=== PATIENT | male | born 1955 | race African-American/Black ===

== ENCOUNTER 2021-04-17 16:04 | Inpatient (IN) | payer OTHER ==
[2021-04-17] MEDS ORDERED: HEPARIN NA (PORCINE) 5,000 UNITS/ML 1ML VIAL IVPUSH ONE ×2 (18:24→19:01)
[2021-04-17] MEDS ORDERED: HEPARIN NA (PORCINE) 5,000 UNITS/ML 1ML VIAL IVPUSH PRN ×2 (18:24)
[2021-04-17] MEDS ORDERED: HEPARIN INFUSION - 25,000 UNITS/500 ML INFUS.BAG IVPB ONE (19:02)
[2021-04-17] MEDS ORDERED: HEPARIN NA (PORCINE) 5,000 UNITS/ML 1ML VIAL ONE (19:02)
[2021-04-17] MEDS: HEPARIN - 25,000 UNIT in SODIUM CHLORIDE 495 ML IV SCH (19:12)
[2021-04-17 19:41] LABS: INR 1.01 (0.83-1.09); PROTHROMBIN TIME (PATIENT) 12.2 SEC (9.7-13.0)
[2021-04-17 19:44] LABS: ACTIVATED PTT 36.8 SECONDS (25.2-36.5)
[2021-04-17 19:51] LABS: CALCIUM 9.5 mg/dL (8.5-10.1)
[2021-04-17 19:52] LABS: ALBUMIN 4.3 g/dl (3.4-5.0); BLOOD UREA NITROGEN 12.4 mg/dL (7-18)
[2021-04-17 19:55] LABS: BASO % 1.4 % (0-2.0); EOS % 2.9 % (0-4.5); HEMATOCRIT 43.1 % (35.4-49); HEMOGLOBIN 14.7 GM/dL (11.7-16.9); LYMPH % 37.2 % (8-40); MCH 33.6 pg (25.7-33.7); MEAN CELL VOLUME 98.7 fl (80-96); MEAN PLT VOLUME 8.6 fl (7.5-11.1); MONO % 10.4 % (3.8-10.2); NEUT % 48.1 % (42.8-82.8); PLATELET COUNT 203 10^3/uL (134-434); RBC 4.37 M/mm3 (4.00-5.60); WHITE BLOOD COUNT 6.9 K/mm3 (4.0-10.0)
[2021-04-17 19:56] LABS: BILIRUBIN,TOTAL 0.8 mg/dL (0.2-1)
[2021-04-17] MEDS ORDERED: ACETAMINOPHEN 325 MG TABLET (FP) PO ONE (20:21)
[2021-04-17] MEDS ORDERED: SODIUM CHLORIDE 1,000 ML IV SCH (22:00)
[2021-04-17] MEDS ORDERED: ACETAMINOPHEN 325 MG TABLET (FP) ONE (22:03)
[2021-04-18 01:08] VITALS: BMI 20.3
[2021-04-18 03:05] LABS: PROTHROMBIN TIME (PATIENT) 12.3 SEC (9.7-13.0)
[2021-04-18 03:06] LABS: INR 1.02 (0.83-1.09)
[2021-04-18 09:14] LABS: HEMATOCRIT 40.8 % (35.4-49); MCHC 34.3 g/dl (32.0-35.9); MEAN CELL VOLUME 99.2 fl (80-96); MEAN PLT VOLUME 9.4 fl (7.5-11.1); PLATELET COUNT 193 10^3/uL (134-434); RBC 4.11 M/mm3 (4.00-5.60); WHITE BLOOD COUNT 6.6 K/mm3 (4.0-10.0)
[2021-04-18 09:53] LABS: ALBUMIN 3.5 g/dl (3.4-5.0); CALCIUM 8.8 mg/dL (8.5-10.1); MAGNESIUM 2.4 mg/dL (1.8-2.4)
[2021-04-18 09:55] LABS: BILIRUBIN,TOTAL 0.8 mg/dL (0.2-1); TOT PROT 6.6 g/dl (6.4-8.2)
[2021-04-18 09:56] LABS: PHOSPHOROUS 3.4 mg/dL (2.5-4.9)
[2021-04-19] MEDS: HEPARIN - 25,000 UNIT in SODIUM CHLORIDE 495 ML IV SCH (00:55)
[2021-04-19] MEDS ORDERED: PROPOFOL 20 ML ONE ×2 (08:26→09:48)
[2021-04-19] MEDS ORDERED: MIDAZOLAM HCL 2 MG/2 ML SINGLE DOSE VIAL ONE ×2 (08:26→09:08)
[2021-04-19 08:55] LABS: BASO % 0.9 % (0-2.0); EOS % 2.8 % (0-4.5); HEMATOCRIT 40.3 % (35.4-49); HEMOGLOBIN 13.8 GM/dL (11.7-16.9); LYMPH % 46.4 % (8-40); MCH 33.8 pg (25.7-33.7); MCHC 34.2 g/dl (32.0-35.9); MEAN PLT VOLUME 9.6 fl (7.5-11.1); MONO % 12.2 % (3.8-10.2); NEUT % 37.7 % (42.8-82.8); PLATELET COUNT 166 10^3/uL (134-434); RBC 4.07 M/mm3 (4.00-5.60); WHITE BLOOD COUNT 5.6 K/mm3 (4.0-10.0)
[2021-04-19] MEDS ORDERED: LIDOCAINE HCL 1%, 10 MG/ML (20ML VIAL) NR ONE ×3 (09:01→09:19)
[2021-04-19] MEDS ORDERED: ceFAZolin SODIUM 1 GM VIAL ONE (09:06)
[2021-04-19] MEDS ORDERED: ceFAZolin SODIUM 1 GM VIAL IVPB ONE (09:09)
[2021-04-19 09:21] LABS: BLOOD UREA NITROGEN 13.4 mg/dL (7-18)
[2021-04-19] MEDS ORDERED: HEPARIN NA (PORCINE) 5,000 UNITS/ML 1ML VIAL SQ ONE (09:22)
[2021-04-19 09:24] LABS: ALBUMIN 3.3 g/dl (3.4-5.0)
[2021-04-19 09:25] LABS: BILIRUBIN,TOTAL 0.6 mg/dL (0.2-1); TOT PROT 6.3 g/dl (6.4-8.2)
[2021-04-19 09:27] LABS: CALCIUM 8.6 mg/dL (8.5-10.1); CREATININE 0.9 mg/dL (0.55-1.3); MAGNESIUM 2.2 mg/dL (1.8-2.4); PHOSPHOROUS 3.2 mg/dL (2.5-4.9)
[2021-04-19] MEDS ORDERED: HEPARIN NA (PORCINE) 5,000 UNITS/ML 1ML VIAL ONE (09:29)
[2021-04-19] MEDS ORDERED: oxyCODONE HCL 5 MG TABLET PO PRN (10:43)
[2021-04-19] MEDS ORDERED: ONDANSETRON 4 MG/2 ML VIAL IVPUSH PRN (10:43)
[2021-04-19] MEDS ORDERED: CLOPIDOGREL BISULFATE 75 MG TABLET (FP) PO ONE (11:05)
[2021-04-19] MEDS: CLOPIDOGREL BISULFATE 75 MG TABLET (FP) PO SCH (13:07)
[2021-04-19] MEDS: amLODIPine BESYLATE 5 MG TABLET (FP) PO SCH (17:02)
[2021-04-19] MEDS ORDERED: amLODIPine BESYLATE 5 MG TABLET (FP) PO ONE (18:03)
[2021-04-19] MEDS ORDERED: LABETALOL HCL 100 MG TABLET (FP) PO ONE (18:53)
[2021-04-19] MEDS: LABETALOL HCL 100 MG TABLET (FP) PO SCH (22:50)
[2021-04-20 09:29] VITALS: BP 114/60; PULSE 71; TEMP 100.2
[2021-04-20] MEDS: amLODIPine BESYLATE 5 MG TABLET (FP) PO SCH (09:30)
[2021-04-20] MEDS: CLOPIDOGREL BISULFATE 75 MG TABLET (FP) PO SCH (09:30)
[2021-04-20] MEDS: LABETALOL HCL 100 MG TABLET (FP) PO SCH (09:32)
[2021-04-20] MEDS ORDERED: ACETAMINOPHEN 325 MG TABLET (FP) PO ONE ×2 (10:58→10:59)
== END 2021-04-20 14:29 | disposition home or self-care (01) | DRG 272 ==
LOC: JER 16:04 → JERBED 19:27 → J6S 04-18 00:22
PROVIDERS: ADMIT Internal Medicine; ATTEND Internal Medicine
PROC: X27J385 Dilation of Left Femoral Artery with Sustained Release Drug-eluting Intraluminal Device, Percutaneous Approach, New Technology Group 5 (ICD-10-PCS; 2021-04-19)
PROC: 3E05317 Introduction of Other Thrombolytic into Peripheral Artery, Percutaneous Approach (ICD-10-PCS; 2021-04-19)
PROC: B41DZZZ Fluoroscopy of Aorta and Bilateral Lower Extremity Arteries (ICD-10-PCS; 2021-04-19)
PROC: 04CL3ZZ Extirpation of Matter from Left Femoral Artery, Percutaneous Approach (ICD-10-PCS; principal; 2021-04-19 09:00)
DX: I77.89 Other specified disorders of arteries and arterioles (principal); I73.9 Peripheral vascular disease, unspecified; E78.5 Hyperlipidemia, unspecified; F17.210 Nicotine dependence, cigarettes, uncomplicated; I16.0 Hypertensive urgency
CPT/HCPCS: 36415; 75635-TC; 76000-TC-FY; 80053; 80061; 82607; 82746; 83721; 83735; 84100; 85025; 85027; 85610; 85730; 86850; 86900; 86901; 93005; 93010; 94010; 94760; 99285-25; C9803; J1644; Q9967; U0003; U0005

== ENCOUNTER 2023-03-05 04:17 | Day surgery (SDC) | payer BC, OTHER ==
[2023-03-04 13:40] VITALS: BMI 20.9
[~2023-03-05 04:17] MED LIST: ACETAMINOPHEN 325 MG TABLET (FP) PO PRN; CYCLOPENTOLATE HCL 1% OPHTH SOLN 2 ML BOTTLE OP SCH; KETOROLAC TROMETHAMINE 0.5% EYE DROP 1 DROP DROPS OP SCH; OFLOXACIN 0.3% OPHTHALMIC SOLUTION 5 ML BOTTLE OP SCH; PHENYLEPHRINE 2.5% OPHTH SOLN 15 ML BOTTLE OP SCH; TROPICAMIDE 1% OPHTH SOLN 15 ML BOTTLE OP SCH
[2023-03-05] MEDS ORDERED: POVIDONE-IODINE 5% OPHTHALMIC PREP 30 ML SOLUTION ONE (07:14)
[2023-03-05] MEDS ORDERED: LIDOCAINE HCL/PF 1% SDV 5ML VIAL ONE (07:14)
[2023-03-05] MEDS ORDERED: TETRACAINE 0.5% OPHTH SOLN 2 ML BOTTLE ONE (07:14)
[2023-03-05 07:26] VITALS: RESP 20
[2023-03-05] MEDS ORDERED: CYCLOPENTOLATE HCL 1% OPHTH SOLN 2 ML BOTTLE ONE (07:47)
[2023-03-05] MEDS ORDERED: OFLOXACIN 0.3% OPHTHALMIC SOLUTION 5 ML BOTTLE ONE (07:47)
[2023-03-05] MEDS ORDERED: TROPICAMIDE 1% OPHTH SOLN 15 ML BOTTLE ONE (07:47)
[2023-03-05] MEDS ORDERED: PHENYLEPHRINE 2.5% OPTHALMIC DROP 2ML BOTTLE ONE (07:47)
[2023-03-05] MEDS ORDERED: KETOROLAC TROMETHAMINE 0.5% EYE DROP 1 DROP DROPS ONE (07:47)
[2023-03-05] MEDS ORDERED: MIDAZOLAM HCL 2 MG/2 ML SINGLE DOSE VIAL ONE (08:49)
[2023-03-05] MEDS ORDERED: TETRACAINE 0.5% OPHTH SOLN 2 ML BOTTLE OD ONE (09:02)
[2023-03-05] MEDS ORDERED: POVIDONE-IODINE 5% OPHTHALMIC PREP 30 ML SOLUTION OD ONE (09:06)
[2023-03-05] MEDS ORDERED: BSS (NA/CA/MG/K) BALANCED SALT SOLUTION OPHTH SOLN 15 ML BOTTLE IO ONE ×2 (09:12→09:13)
[2023-03-05] MEDS ORDERED: TRYPAN BLUE 0.5 ML DISP.SYRIN IO ONE ×2 (09:13→09:15)
[2023-03-05] MEDS ORDERED: LIDOCAINE HCL 1% PRESERVATIVE FREE - 30ML VIAL IO ONE (09:16)
[2023-03-05] MEDS ORDERED: CHONDROITIN SU A/HYALUR SOD 1 KIT IO ONE (09:17)
[2023-03-05] MEDS ORDERED: EPINEPHrine/PF 1 MG/1 ML (1:1,000) AMPULE SQ ONE (09:21)
[2023-03-05 16:34] VITALS: BP 162/81; PULSE 60; TEMP 97.7
== END 2023-03-05 10:30 | disposition home or self-care (01) ==
LOC: JASU-SURG 04:17
PROVIDERS: ATTEND Ophthalmology
PROC: 08RJ3JZ Replacement of Right Lens with Synthetic Substitute, Percutaneous Approach (ICD-10-PCS; principal; 2023-03-05 09:00)
DX: H26.9 Unspecified cataract (principal)
CPT/HCPCS: V2632

== ENCOUNTER 2023-05-17 05:21 | Emergency (ER) | payer BC, OTHER ==
[2023-05-17 05:34] VITALS: BP 141/73; PULSE 65; RESP 20; TEMP 98.4; BMI 21.2
[2023-05-17] MEDS ORDERED: metroNIDAZOLE 250 MG TABLET PO ONE (05:43)
[2023-05-17] MEDS ORDERED: PENICILLIN V POTASSIUM 500 MG TABLET PO ONE (05:44)
[2023-05-17] MEDS ORDERED: BENZOCAINE 20 % GEL TUBE MM ONE (05:59)
[2023-05-17] MEDS ORDERED: metroNIDAZOLE 250 MG TABLET ONE (06:39)
== END 2023-05-17 06:44 | disposition home or self-care (01) ==
LOC: JER 05:21
DX: K13.79 Other lesions of oral mucosa (principal); K06.8 Other specified disorders of gingiva and edentulous alveolar ridge
CPT/HCPCS: 99283-25

== ENCOUNTER 2024-03-07 02:04 | Emergency (ER) | payer BC, OTHER ==
[2024-03-07 02:13] VITALS: PULSE 77; RESP 18; TEMP 97.8; BMI 22.3
[2024-03-07] MEDS ORDERED: KETOROLAC TROMETHAMINE 30 MG/1 ML VIAL ONE (02:28)
[2024-03-07] MEDS: KETOROLAC TROMETHAMINE 30 MG/1 ML VIAL IM ONE (02:29)
[2024-03-07] MEDS ORDERED: LIDOCAINE VISCOUS 2% ORAL/TOP 15 ML UNIT-DOSE CUP ONE (02:58)
[2024-03-07] MEDS: LIDOCAINE VISCOUS 2% ORAL/TOP 15 ML UNIT-DOSE CUP MM ONE (02:59)
[2024-03-07 03:11] VITALS: BP 154/94
== END 2024-03-07 03:10 | disposition home or self-care (01) ==
LOC: JER 02:04
PROC: 3E0133Z Introduction of Anti-inflammatory into Subcutaneous Tissue, Percutaneous Approach (ICD-10-PCS; principal; 2024-03-07)
DX: T85.848A Pain due to other internal prosthetic devices, implants and grafts, initial encounter (principal); K08.89 Other specified disorders of teeth and supporting structures; Z97.2 Presence of dental prosthetic device (complete) (partial)
CPT/HCPCS: 99284-25